=== PATIENT | female | born 1960 ===

== ENCOUNTER 2021-03-21 02:17 | Outpatient (CLI) | payer SELFPAY ==
[2021-03-24 11:57] LABS: Measles IgG Antibody Negative (See Note); Mumps Antibody IgG Positive (See Note)
[2021-03-24 12:01] LABS: Rubella IgG Ab (UVM) Positive (See Note)
== END 2021-03-21 02:18 | disposition home or self-care (01) ==
LOC: LBO 02:17
PROVIDERS: Visit Provider Nurse Practitioner Family
DX: Z02.1 Encounter for pre-employment examination (principal)
CPT/HCPCS: 36415; 86735; 86762; 86765